=== PATIENT | female | born 1960 | race Caucasian/White ===

== ENCOUNTER 2018-05-04 14:59 | Emergency (ER) | payer OTHER ==
[2018-05-04 15:33] LABS: ADD MAN DIFF? NO
[2018-05-04 15:35] LABS: BASOPHIL # 0.1 10^3/ul (0.0-0.1); BASOPHILS % 0.7 % (0.0-2.0); EOSINOPHILS # 0.2 10^3/ul (0.0-0.5); EOSINOPHILS % 2.7 % (0.0-7.0); HEMATOCRIT 40.3 % (37.0-47.0); HEMOGLOBIN 13.1 g/dl (12.0-16.0); LYMPHOCYTES # 1.9 10^3/ul (0.8-2.9); LYMPHOCYTES % 21.3 % (15.0-51.0); MEAN CORPUSCULAR HEMOGLOBIN 28.7 pg (29.0-33.0); MEAN CORPUSCULAR HGB CONC 32.5 g/dl (32.0-37.0); MEAN CORPUSCULAR VOLUME 88.4 fl (82.0-101.0); MEAN PLATELET VOLUME 9.5 fl (7.4-10.4); MONOCYTE # 0.6 10^3/ul (0.3-0.9); NEUTROPHIL # 6.1 10^3/ul (1.6-7.5); PLATELET COUNT 274 10^3/UL (140-415); RED BLOOD COUNT 4.56 10^6/ul (4.20-5.40); RED CELL DISTRIBUTION WIDTH 13.3 % (11.5-14.5)
[2018-05-04 15:35] LABS: WHITE BLOOD COUNT 8.9 10^3/ul (4.8-10.8)
[2018-05-04] MEDS: IPRATROPIUM (NEB) 0.5 MG/2.5 ML AMP INH (15:35)
[2018-05-04] MEDS: ALBUTEROL 0.5% (NEB) 2.5 MG/0.5 ML AMP INH (15:35)
[2018-05-04 15:55] LABS: ALANINE AMINOTRANSFERASE 57 IU/L (13-69); ALBUMIN 4.4 g/dl (3.3-4.9); ALBUMIN/GLOBULIN RATIO 1.46; ALKALINE PHOSPHATASE 87 IU/L (42-121); ANION GAP 9 (5-13); ASPARTATE AMINO TRANSFERASE 39 IU/L (15-46); BILIRUBIN,INDIRECT 0.3 mg/dl (0-1.1); BILIRUBIN,TOTAL 0.3 mg/dl (0.2-1.3); BLOOD UREA NITROGEN 16 mg/dl (7-20); CARBON DIOXIDE 28 mmol/L (21-31); CHLORIDE 102 mmol/L (97-110); CREATININE 0.78 mg/dl (0.44-1.00); Estimated GFR > 60 mL/min (>60); GLUCOSE 93 mg/dl (70-220); POTASSIUM 4.3 mmol/L (3.5-5.1); SODIUM 139 mmol/L (135-144); TOTAL PROTEIN 7.4 g/dl (6.1-8.1)
[2018-05-04 16:06] LABS: TROPONIN-I < 0.012 ng/ml (0.000-0.120)
[2018-05-04] MEDS: IOHEXOL 100 ML (17:50)
[2018-05-04] MEDS: SOD CHLORIDE 0.9% 100 ML (17:50)
== END 2018-05-04 21:40 | disposition home or self-care (01) ==
LOC: E/R 14:59
DX: J98.01 Acute bronchospasm (principal); I10 Essential (primary) hypertension; Z79.82 Long term (current) use of aspirin
CPT/HCPCS: 36415; 71045; 71275; 80053; 84484; 85025; 93005; 94644; 99285-25

== ENCOUNTER 2018-10-07 22:42 | Emergency (ER) | payer OTHER ==
[2018-10-08] MEDS: CYCLOBENZAPRINE 10 MG TAB PO (00:24)
[2018-10-08] MEDS: KETOROLAC 60 MG INJ IM (00:24)
[2018-10-08] MEDS: traMADol 50 MG TAB PO (00:24)
[2018-10-08] MEDS: DEXAMETHASONE 10 MG/ML 1 ML INJ IM (00:24)
== END 2018-10-08 02:21 | disposition home or self-care (01) ==
LOC: FTE 22:42
DX: M62.838 Other muscle spasm (principal); I10 Essential (primary) hypertension; Z79.82 Long term (current) use of aspirin
CPT/HCPCS: 93005; 96372; 99284-25

== ENCOUNTER 2019-01-06 04:12 | Emergency (ER) | payer OTHER ==
[2019-01-06 05:54] LABS: ADD UMIC NO; UR ASCORBIC ACID 20 mg/dL (NEGATIVE); UR BILIRUBIN (Dip) NEGATIVE (NEGATIVE); UR BLOOD (Dip) NEGATIVE (NEGATIVE); UR CLARITY SLIGHTLY CLOUDY (CLEAR); UR COLOR YELLOW (YELLOW); UR GLUCOSE (Dip) NEGATIVE (NEGATIVE); UR KETONES (Dip) NEGATIVE (NEGATIVE); UR LEUKOCYTE ESTERASE (Dip) NEGATIVE Leu/ul (NEGATIVE); UR NITRITE (Dip) NEGATIVE (NEGATIVE); UR RBC 1 /HPF (0-5); UR SPECIFIC GRAVITY (Dip) 1.019 (1.003-1.030); UR SQUAMOUS EPITHELIAL CELL FEW /HPF (FEW); UR TOTAL PROTEIN (Dip) NEGATIVE (NEGATIVE); UR UROBILINOGEN (Dip) NEGATIVE (NEGATIVE); UR WBC 1 /HPF (0-5)
[2019-01-06 05:59] LABS: ADD MAN DIFF? NO
[2019-01-06 06:07] LABS: BASOPHILS % 0.4 % (0.0-2.0); EOSINOPHILS # 0.3 10^3/ul (0.0-0.5); EOSINOPHILS % 3.3 % (0.0-7.0); HEMATOCRIT 43.2 % (37.0-47.0); HEMOGLOBIN 13.9 g/dl (12.0-16.0); LYMPHOCYTES # 2.2 10^3/ul (0.8-2.9); LYMPHOCYTES % 24.3 % (15.0-51.0); MEAN CORPUSCULAR HEMOGLOBIN 28.7 pg (29.0-33.0); MEAN CORPUSCULAR HGB CONC 32.2 g/dl (32.0-37.0); MEAN CORPUSCULAR VOLUME 89.1 fl (82.0-101.0); MEAN PLATELET VOLUME 9.8 fl (7.4-10.4); MONOCYTE # 0.6 10^3/ul (0.3-0.9); MONOCYTES % 6.9 % (0.0-11.0); NEUTROPHIL # 5.9 10^3/ul (1.6-7.5); NEUTROPHILS % 64.9 % (39.0-77.0); PLATELET COUNT 255 10^3/UL (140-415); RED BLOOD COUNT 4.85 10^6/ul (4.20-5.40); RED CELL DISTRIBUTION WIDTH 13.2 % (11.5-14.5)
[2019-01-06] MEDS ORDERED: ONDANSETRON INJ 8 MG in DEXTROSE 5% 50 ML IV (06:23)
[2019-01-06] MEDS: ONDANSETRON 4 MG INJ IV (06:37)
[2019-01-06] MEDS: FAMOTIDINE 20 MG INJ IV (06:37)
[2019-01-06] MEDS: SOD CHLORIDE 0.9% 1,000 ML IV (06:37)
[2019-01-06] MEDS: morphine 4 MG/ML VIAL IV (06:37)
[2019-01-06] MEDS: SOD CHLORIDE 0.9% 500 ML IV (06:38)
[2019-01-06 07:11] LABS: ALANINE AMINOTRANSFERASE 41 IU/L (13-69); ALBUMIN 4.3 g/dl (3.3-4.9); ALBUMIN/GLOBULIN RATIO 1.38; ALKALINE PHOSPHATASE 88 IU/L (42-121); ANION GAP 13 (5-13); ASPARTATE AMINO TRANSFERASE 49 IU/L (15-46); BILIRUBIN,INDIRECT 0.5 mg/dl (0-1.1); BILIRUBIN,TOTAL 0.5 mg/dl (0.2-1.3); BLOOD UREA NITROGEN 31 mg/dl (7-20); CALCIUM 9.5 mg/dl (8.4-10.2); CARBON DIOXIDE 26 mmol/L (21-31); CHLORIDE 103 mmol/L (97-110); CREATININE 0.97 mg/dl (0.44-1.00); Estimated GFR 59 mL/min (>60); GLUCOSE 103 mg/dl (70-220); LIPASE 107 U/L (23-300); POTASSIUM 4.7 mmol/L (3.5-5.1); SODIUM 142 mmol/L (135-144); TOTAL PROTEIN 7.4 g/dl (6.1-8.1)
[2019-01-06 07:26] LABS: AMYLASE 120 U/L (11-123)
[2019-01-06 07:39] LABS: TROPONIN-I < 0.012 ng/ml (0.000-0.120)
[2019-01-06] MEDS: METOCLOPRAMIDE 10 MG INJ IV (07:46)
== END 2019-01-06 08:01 | disposition home or self-care (01) ==
LOC: E/R 04:12
DX: K57.30 Diverticulosis of large intestine without perforation or abscess without bleeding (principal); I10 Essential (primary) hypertension; Z79.82 Long term (current) use of aspirin
CPT/HCPCS: 36415; 74176; 80053; 81001; 81003; 82150; 83690; 84484; 85025; 93005; 96361; 96374; 96375; 99285-25

== ENCOUNTER 2019-02-14 23:38 | Emergency (ER) | payer OTHER ==
[2019-02-15 00:25] LABS: ADD MAN DIFF? NO
[2019-02-15 00:27] LABS: BASOPHILS % 0.3 % (0.0-2.0); EOSINOPHILS # 0.3 10^3/ul (0.0-0.5); EOSINOPHILS % 2.8 % (0.0-7.0); HEMOGLOBIN 13.3 g/dl (12.0-16.0); LYMPHOCYTES # 2.3 10^3/ul (0.8-2.9); LYMPHOCYTES % 25.5 % (15.0-51.0); MEAN CORPUSCULAR HEMOGLOBIN 28.7 pg (29.0-33.0); MEAN CORPUSCULAR HGB CONC 32.4 g/dl (32.0-37.0); MEAN CORPUSCULAR VOLUME 88.6 fl (82.0-101.0); MEAN PLATELET VOLUME 9.2 fl (7.4-10.4); MONOCYTE # 0.7 10^3/ul (0.3-0.9); MONOCYTES % 7.3 % (0.0-11.0); NEUTROPHIL # 5.8 10^3/ul (1.6-7.5); NEUTROPHILS % 63.9 % (39.0-77.0); PLATELET COUNT 250 10^3/UL (140-415); RED BLOOD COUNT 4.63 10^6/ul (4.20-5.40); RED CELL DISTRIBUTION WIDTH 13.4 % (11.5-14.5)
[2019-02-15 00:46] LABS: ANION GAP 6 (5-13); BLOOD UREA NITROGEN 25 mg/dl (7-20); CALCIUM 9.4 mg/dl (8.4-10.2); CARBON DIOXIDE 33 mmol/L (21-31); CHLORIDE 100 mmol/L (97-110); CREATININE 1.05 mg/dl (0.44-1.00); Estimated GFR 54 mL/min (>60); GLUCOSE 112 mg/dl (70-220); INR 0.93; POTASSIUM 3.9 mmol/L (3.5-5.1); PROTIME 12.6 Sec (11.9-14.9); SODIUM 139 mmol/L (135-144)
[2019-02-15 00:57] LABS: B-TYPE NATRIURETIC PEPTIDE 40 PG/ML (0-125); TROPONIN-I < 0.012 ng/ml (0.000-0.120)
[2019-02-15 01:54] LABS: ALANINE AMINOTRANSFERASE 43 IU/L (13-69); ALBUMIN 3.8 g/dl (3.3-4.9); ALKALINE PHOSPHATASE 84 IU/L (42-121); ASPARTATE AMINO TRANSFERASE 26 IU/L (15-46); BILIRUBIN,INDIRECT 0.3 mg/dl (0-1.1); BILIRUBIN,TOTAL 0.3 mg/dl (0.2-1.3); LIPASE 77 U/L (23-300); TOTAL PROTEIN 6.7 g/dl (6.1-8.1)
[2019-02-15] MEDS: SOD CHLORIDE 0.9% 500 ML IV (02:18)
[2019-02-15] MEDS: KETOROLAC 15 MG INJ IV (02:18)
[2019-02-15] MEDS: ONDANSETRON 4 MG INJ IV (02:18)
[2019-02-15] MEDS: BELLADONNA/PHENOBARBITAL TAB PO (02:19)
[2019-02-15] MEDS: LIDOCAINE/MYLANTA 40 ML BTL PO (02:19)
[2019-02-15] MEDS: FAMOTIDINE 20 MG INJ IV (02:19)
[2019-02-15 03:53] LABS: TROPONIN-I < 0.012 ng/ml (0.000-0.120)
== END 2019-02-15 04:35 | disposition home or self-care (01) ==
LOC: E/R 23:38
DX: R07.9 Chest pain, unspecified (principal); I10 Essential (primary) hypertension; F41.9 Anxiety disorder, unspecified; R10.13 Epigastric pain; Z79.82 Long term (current) use of aspirin
CPT/HCPCS: 36415; 71045; 80048; 80076; 83690; 83880; 84484; 85025; 85610; 93005; 96374; 96375; 99285-25